=== PATIENT | male | born 1990 | race Caucasian/White ===

== ENCOUNTER 2017-11-14 09:13 | Emergency (ER) | payer OTHER ==
--- NOTE | 2017-11-14 10:04 | EDM.PDOC ---
<Payam Oconnell - Last Filed: 11/14/17 12:01> ED HPI GENERAL MEDICAL PROBLEM - General Chief Complaint: Genitourinary Problem Stated Complaint: GROIN PAIN Time Seen by Provider: 11/14/17 12:03 - History of Present Illness INITIAL COMMENTS - FREE TEXT/NARRATIVE: Patient's emergency department course has been unremarkable UA was negative ultrasound was grossly unremarkable patient be discharged on doxycycline 100 mg twice a day 10 days and be given urology for referral he is to return as needed as discussed and we did specifically talk about acute pain and any changes of that nature returning immediately patient understands and agrees - Related Data Allergies Allergy/AdvReac Type Severity Reaction Status Date / Time No Known Allergies Allergy Verified 11/14/17 09:30 Home Meds: Home Meds . [No Known Home Meds] 11/14/17 [History] ED EXAM, GENERAL - Physical Exam Exam: See Below Course - Vital Signs Last Recorded V/S: Last Vital Signs Temp 97.0 F 11/14/17 09:31 Pulse 82 11/14/17 12:08 Resp 18 11/14/17 12:08 BP 151/85 H 11/14/17 09:31 Pulse Ox 99 11/14/17 12:08 - Orders/Labs/Meds Orders: Active Orders 24 hr Category Date Time Status CHLAMYDIA AND GONORRHEA BY TMA Routine Lab 11/14/17 09:56 Received CULTURE URINE [RM] Stat Lab 11/14/17 11:05 Received Labs: Laboratory Tests 11/14/17 Range/Units 09:56 Urine Color YELLOW Urine Appearance CLEAR Urine pH 6.0 (5.0-8.0) Ur Specific [place] 1.025 (1.001-1.035) Urine Protein NEGATIVE (NEGATIVE) mg/dL Urine Glucose (UA) NEGATIVE (NEGATIVE) mg/dL Urine Ketones NEGATIVE (NEGATIVE) mg/dL Urine Occult Blood NEGATIVE (NEGATIVE) Urine Nitrite NEGATIVE (NEGATIVE) Urine Bilirubin NEGATIVE (NEGATIVE) Urine Urobilinogen 0.2 (<2.0) EU/dL Ur Leukocyte Esterase NEGATIVE (NEGATIVE) Urine RBC NONE SEEN (0-2/HPF) Urine WBC NONE SEEN (0-5/HPF) Ur Epithelial Cells RARE (NONE-FEW) Urine Bacteria RARE (NEGATIVE) Departure - Departure Time of Disposition: 12:02 Disposition: Home, Self-Care 01 Condition: Good Clinical Impression: Testicular pain - Discharge Information *PRESCRIPTION DRUG MONITORING PROGRAM REVIEWED*: Not Applicable *COPY OF PRESCRIPTION DRUG MONITORING REPORT IN PATIENT VIVIENNE: Not Applicable Instructions: Medical Screening Exam, Pain Without a Known Cause Referrals: PCP,None [Primary Care Provider] - Forms: ED Department Discharge Additional Instructions: The following information is given to patients seen in the emergency department who are being discharged to home. This information is to outline your options for follow-up care. We provide all patients seen in our emergency department with a follow-up referral. The need for follow-up, as well as the timing and circumstances, are variable depending upon the specifics of your emergency department visit. If you don't have a primary care physician on staff, we will provide you with a referral. We always advise you to contact your personal physician following an emergency department visit to inform them of the circumstance of the visit and for follow-up with them and/or the need for any referrals to a consulting specialist. The emergency department will also refer you to a specialist when appropriate. This referral assures that you have the opportunity for followup care with a specialist. All of these measure are taken in an effort to provide you with optimal care, which includes your followup. Under all circumstances we always encourage you to contact your private physician who remains a resource for coordinating your care. When calling for followup care, please make the office aware that this follow-up is from your recent emergency room visit. If for any reason you are refused follow-up, please contact the [facility] emergency department at and asked to speak to the emergency department charge nurse. [facility] - Urology [address] [place] [id number] Doxycycline as prescribed follow-up urology above call to schedule appointment return as needed as discussed <Felicita Santos - Last Filed: 11/14/17 14:12> ED HPI GENERAL MEDICAL PROBLEM - History of Present Illness INITIAL COMMENTS - FREE TEXT/NARRATIVE: The patient is a 27-year-old male with no significant past medical history who presents to the ER with intermittent testicular pain for the past 2 weeks. Patient reports that the pain lasts for her 2 hours when it happens. Nothing makes it worse, nothing makes it better. At the worst the pain is a 6 out of 10 , but he is not having any pain currently. He denies any trauma, swelling, or previous history. He denies any penile discharge, burning with urination or genital lesions. Denies abdominal pain, nausea, vomiting. groin Pain Score (Numeric/FACES): 6 Past Medical History - Past Health History Medical/Surgical History: Denies Medical/Surgical History - Infectious Disease History Infectious Disease History: Reports: Chicken Pox Social & Family History - Family History Family Medical History: Noncontributory - Tobacco Use Smoking Status *Q: Never Smoker Second Hand Smoke Exposure: No - Caffeine Use Caffeine Use: Reports: Energy Drinks - Recreational Drug Use Recreational Drug Use: No ED ROS GENERAL - Review of Systems Review Of Systems: See Below (see dictation) ED EXAM, GENERAL - Physical Exam General Appearance: Alert, No Apparent Distress Respiratory/Chest: No Respiratory Distress, Lungs Clear, Normal Breath Sounds Cardiovascular: Regular Rate, Rhythm, No Edema, No Murmur, No Rub GI/Abdominal: Normal Bowel Sounds, Soft, Non-Tender (Male) Exam: No Hernia, Normal Inspection. No: Scrotal Swelling Psychiatric: Normal Affect, Normal Mood Skin Exam: Warm, Dry, Intact Course - Orders/Labs/Meds Labs: Laboratory Tests 11/14/17 Range/Units 09:56 Urine Color YELLOW Urine Appearance CLEAR Urine pH 6.0 (5.0-8.0) Ur Specific [place] 1.025 (1.001-1.035) Urine Protein NEGATIVE (NEGATIVE) mg/dL Urine Glucose (UA) NEGATIVE (NEGATIVE) mg/dL Urine Ketones NEGATIVE (NEGATIVE) mg/dL Urine Occult Blood NEGATIVE (NEGATIVE) Urine Nitrite NEGATIVE (NEGATIVE) Urine Bilirubin NEGATIVE (NEGATIVE) Urine Urobilinogen 0.2 (<2.0) EU/dL Ur Leukocyte Esterase NEGATIVE (NEGATIVE) Urine RBC NONE SEEN (0-2/HPF) Urine WBC NONE SEEN (0-5/HPF) Ur Epithelial Cells RARE (NONE-FEW) Urine Bacteria RARE (NEGATIVE)
--- NOTE | 2017-11-14 11:22 | US ---
EXAMINATION: Scrotal duplex ultrasound HISTORY: Pain COMPARISON: None TECHNIQUE: Grayscale, color Doppler, and spectral Doppler imaging obtained of the scrotum. FINDINGS: Multilevel and right testicles appear normal contour, and echogenicity, and size. No testic ular masses. No significant hydrocele or varicocele. The epididymides appear normal. No scrotal wall thickening. IMPRESSION: 1. Grossly unremarkable scrotal duplex ultrasound.
== END 2017-11-14 12:08 | disposition home or self-care (01) ==
LOC: MW.ED 09:13
DX: N50.819 Testicular pain, unspecified (principal)
CPT/HCPCS: 76870; 76870-26; 81001; 87086; 87491; 87591; 93976; 93976-26; 99282; 99284-25

== ENCOUNTER 2018-05-21 08:09 | Emergency (ER) | payer OTHER ==
--- NOTE | 2018-05-21 08:13 | EDM.PDOC ---
ED HPI GENERAL MEDICAL PROBLEM - General Chief Complaint: General Stated Complaint: FEVER,COUGHING AND COLD Time Seen by Provider: 05/21/18 08:13 Source of Information: Reports: Patient - History of Present Illness INITIAL COMMENTS - FREE TEXT/NARRATIVE: HISTORY AND PHYSICAL: History of present illness: [Patient presents with fever cough and myalgias present for 2 hours she did take Tylenol at home and is in afebrile at current] Review of systems: As per history of present illness and below otherwise all systems reviewed and negative. Past medical history: As per history of present illness and as reviewed below otherwise noncontributory. Surgical history: As per history of present illness and as reviewed below otherwise noncontributory. Social history: No reported history of drug or alcohol abuse. Family history: As per history of present illness and as reviewed below otherwise noncontributory. Physical exam: HEENT: Atraumatic, normocephalic, pupils reactive, negative for conjunctival pallor or scleral icterus, mucous membranes moist, throat clear, neck supple, nontender, trachea midline. tymPanic membranes injected Lungs: Clear to auscultation, breath sounds equal bilaterally, chest nontender. Heart: S1S2, regular, negative for clicks, rubs, or JVD. Abdomen: Soft, nondistended, nontender. Negative for masses or hepatosplenomegaly. Negative for costovertebral tenderness. Pelvis: Stable nontender. Genitourinary: Deferred. Rectal: Deferred. Extremities: Atraumatic, negative for cords or calf pain. Neurovascular unremarkable. Neuro: Awake, alert, oriented. Cranial nerves II through XII unremarkable. Cerebellum unremarkable. Motor and sensory unremarkable throughout. Exam nonfocal. Diagnostics: [Strep influenza Chest 1 view ] Therapeutics: [Azithromycin Tamiflu] Impression: [Viral syndrome Bronchitis] Definitive disposition and diagnosis as appropriate pending reevaluation and review of above. lowr back Pain Score (Numeric/FACES): 7 - Related Data Allergies Allergy/AdvReac Type Severity Reaction Status Date / Time No Known Allergies Allergy Verified 05/21/18 08:15 Home Meds: Home Meds . [No Known Home Meds] 11/14/17 [History] Past Medical History - Past Health History Medical/Surgical History: Denies Medical/Surgical History - Infectious Disease History Infectious Disease History: Reports: Chicken Pox Social & Family History - Family History Family Medical History: Noncontributory - Caffeine Use Caffeine Use: Reports: Energy Drinks ED ROS GENERAL - Review of Systems Review Of Systems: See Below ED EXAM, GENERAL - Physical Exam Exam: See Below Course - Vital Signs Last Recorded V/S: Last Vital Signs Temp 97.7 F 05/21/18 08:16 Pulse 106 H 05/21/18 08:16 Resp 18 05/21/18 08:16 BP 134/73 05/21/18 08:16 Pulse Ox 97 05/21/18 08:16 - Orders/Labs/Meds Orders: Active Orders 24 hr Category Date Time Status CULTURE STREP A CONFIRMATION [RM] Stat Lab 05/21/18 08:19 Results STREP SCRN A RAPID W CULT CONF [RM] Stat Lab 05/21/18 08:19 Results UA RFX SAMIR AND CULT IF INDIC [URIN] Stat Lab 05/21/18 08:44 Stop Req Departure - Departure Time of Disposition: 08:56 Disposition: Home, Self-Care 01 Condition: Good Clinical Impression: Otitis media, Bronchitis - Discharge Information Forms: ED Department Discharge Additional Instructions: The following information is given to patients seen in the emergency department who are being discharged to home. This information is to outline your options for follow-up care. We provide all patients seen in our emergency department with a follow-up referral. The need for follow-up, as well as the timing and circumstances, are variable depending upon the specifics of your emergency department visit. If you don't have a primary care physician on staff, we will provide you with a referral. We always advise you to contact your personal physician following an emergency department visit to inform them of the circumstance of the visit and for follow-up with them and/or the need for any referrals to a consulting specialist. The emergency department will also refer you to a specialist when appropriate. This referral assures that you have the opportunity for follow-up care with a specialist. All of these measure are taken in an effort to provide you with optimal care, which includes your follow-up. Under all circumstances we always encourage you to contact your private physician who remains a resource for coordinating your care. When calling for follow-up care, please make the office aware that this follow-up is from your recent emergency room visit. If for any reason you are refused follow-up, please contact the [facility] emergency department at and asked to speak to the emergency department charge nurse. - My Orders Last 24 Hours: My Active Orders 05/21/18 08:19 CULTURE STREP A CONFIRMATION [RM] Stat STREP SCRN A RAPID W CULT CONF [RM] Stat 05/21/18 08:44 UA RFX SAMIR AND CULT IF INDIC [URIN] Stat - Assessment/Plan Last 24 Hours: My Active Orders 05/21/18 08:19 CULTURE STREP A CONFIRMATION [RM] Stat STREP SCRN A RAPID W CULT CONF [RM] Stat 05/21/18 08:44 UA RFX SAMIR AND CULT IF INDIC [URIN] Stat
--- NOTE | 2018-05-21 08:50 | CR ---
INDICATION: Pain and shortness of breath. TECHNIQUE: AP portable chest x-ray. FINDINGS: Heart size is within normal limits. Pulmonary vascularity in the lungs is mildly increased specially in the upper lungs suggesting slight pulmonary venous congestion. Lowermost chest not included on this film. No focal infiltrate or consolidation in either lung. Chest otherwise unremarkable. Dictated by Russell Beltran MD @ May 21 2018 8:47AM Signed by Dr. Russell Beltran @ May 21 2018 8:47AM
== END 2018-05-21 09:10 | disposition home or self-care (01) ==
LOC: MW.ED 08:09
DX: J40 Bronchitis, not specified as acute or chronic (principal); B34.9 Viral infection, unspecified; H66.90 Otitis media, unspecified, unspecified ear
CPT/HCPCS: 71045; 71045-26; 87081; 87804; 87880-QW; 99282; 99283-25

== ENCOUNTER 2018-08-12 11:52 | Emergency (ER) | payer OTHER ==
--- NOTE | 2018-08-12 12:30 | EDM.PDOC ---
ED HPI GENERAL MEDICAL PROBLEM - General Chief Complaint: Upper Extremity Injury/Pain Stated Complaint: HURT LT WRIST Time Seen by Provider: 08/12/18 11:53 Source of Information: Reports: Patient History Limitations: Reports: No Limitations - History of Present Illness INITIAL COMMENTS - FREE TEXT/NARRATIVE: HISTORY AND PHYSICAL: History of present illness: 28year old male presenting for left wrist injury. Patient reports that he was moving a pipe at work last night and twisted his wrist wrong. He reports that it is an achy pain. Pain does not radiate but it is worse with movement. Denies any prior injuries. He is not taking any medications. Patient denies fever, chills, chest pain, shortness of breath, or cough. Denies headache, neck stiff ness, change in vision, syncope, or near syncope. Denies nausea, vomiting, abdominal pain, diarrhea, constipation, or dysuria. Has not noted any blood in urine or stool. Patient has been eating and drinking appropriately. Review of systems: As per history of present illness and below otherwise all systems reviewed and negative. Past medical history: As per history of present illness and as reviewed below otherwise noncontributory. Surgical history: As per history of present illness and as reviewed below otherwise noncontributory. Social history: See social history for further information Family history: As per history of present illness and as reviewed below otherwise noncontributory. Physical exam: General: Patient is alert, oriented, and in no acute distress. Patient sitting comfortably on exam table. HEENT: Atraumatic, normocephalic, pupils equal and reactive bilaterally, negative for conjunctival pallor or scleral icterus, mucous membranes moist, TMs normal bilaterally, throat clear, neck supple, nontender, trachea midline. No drooling or trismus noted. No meningeal signs. No hot potato voice noted. Lungs: Clear to auscultation, breath sounds equal bilaterally, chest nontender. Heart: S1S2, regular rate and rhythm without overt murmur Abdomen: Soft, nondistended, nontender. Negative for masses or hepatosplenomegaly. Negative for costovertebral tenderness. Pelvis: Stable nontender. Genitourinary: Deferred. Rectal: Deferred. Skin: Intact, warm, dry. No lesions or rashes noted. Extremities: Atraumatic, negative for cords or calf pain. Neurovascular unremarkable. Pain at radial head of left wrist. Pain worse with lateral flexion of the wrist. Radial pulse palpable. Capillary refill <3 sec. Full rang of motion demonstrated in left fingers, wrist, and elbow. Negative snuff box tenderness. Neuro: Awake, alert, oriented. Cranial nerves II through XII unremarkable. Cerebellum unremarkable. Motor and sensory unremarkable throughout. Exam nonfocal. Notes: Discussed the importance of follow up with PCP. Voices understanding and is agreeable to plan of care. Denies any further questions or concerns at this time. Diagnostics: Wrist X-ray Therapeutics: Toradol Splint Prescription: Diclofenac Impression: 1. Wrist strain, left Plan: 1. Take medications as prescribed. May use Tylenol as directed for pain and discomfort. 2. Follow up with your PCP as discussed. Return to ED as discussed. Definitive disposition and diagnosis as appropriate pending reevaluation and review of above. left wrist Pain Score (Numeric/FACES): 6 - Related Data Allergies Allergy/AdvReac Type Severity Reaction Status Date / Time No Known Allergies Allergy Verified 05/21/18 08:15 Home Meds: Home Meds . [No Known Home Meds] 11/14/17 [History] Past Medical History - Past Health History Medical/Surgical History: Denies Medical/Surgical History HEENT History: Reports: None Cardiovascular History: Reports: None Respiratory History: Reports: None Gastrointestinal History: Reports: None Genitourinary History: Reports: None Musculoskeletal History: Reports: None Neurological History: Reports: None Psychiatric History: Reports: None Endocrine/Metabolic History: Reports: None Hematologic History: Reports: None Immunologic History: Reports: None Oncologic (Cancer) History: Reports: None Dermatologic History: Reports: None - Infectious Disease History Infectious Disease History: Reports: Chicken Pox - Past Surgical History Head Surgeries/Procedures: Reports: None HEENT Surgical History: Reports: None Cardiovascular Surgical History: Reports: None Respiratory Surgical History: Reports: None GI Surgical History: Reports: None Male Surgical History: Reports: None Endocrine Surgical History: Reports: None Neurological Surgical History: Reports: None Musculoskeletal Surgical History: Reports: None, Other (See Below) Other Musculoskeletal Surgeries/Procedures:: right ankle surgery Oncologic Surgical History: Reports: None Dermatological Surgical History: Reports: None Social & Family History - Family History Family Medical History: Noncontributory - Tobacco Use Smoking Status *Q: Never Smoker - Caffeine Use Caffeine Use: Reports: None - Recreational Drug Use Recreational Drug Use: No Review of Systems - Review of Systems Review Of Systems: ROS reveals no pertinent complaints other than HPI. ED EXAM, GENERAL - Physical Exam Exam: See Below (See dictation) Course - Vital Signs Last Recorded V/S: Last Vital Signs Temp 36.9 C 08/12/18 12:26 Pulse 87 08/12/18 12:26 Resp 16 08/12/18 12:26 BP 131/79 08/12/18 12:26 Pulse Ox 97 08/12/18 12:26 - Orders/Labs/Meds Orders: Active Orders 24 hr Category Date Time Status DME for Discharge [COMM] Stat Oth 08/12/18 12:31 Ordered Departure - Departure Time of Disposition: 12:51 Disposition: Home, Self-Care 01 Clinical Impression: Wrist strain Qualifiers: Encounter type: initial encounter Laterality: left Qualified Code(s): S66.912A - Strain of unspecified muscle, fascia and tendon at wrist and hand level, left hand, initial encounter - Discharge Information Referrals: PCP,None [Primary Care Provider] - Forms: ED Department Discharge Additional Instructions: The following information is given to patients seen in the emergency department who are being discharged to home. This information is to outline your options for follow-up care. We provide all patients seen in our emergency department with a follow-up referral. The need for follow-up, as well as the timing and circumstances, are variable depending upon the specifics of your emergency department visit. If you don't have a primary care physician on staff, we will provide you with a referral. We always advise you to contact your personal physician following an emergency department visit to inform them of the circumstance of the visit and for follow-up with them and/or the need for any referrals to a consulting specialist. The emergency department will also refer you to a specialist when appropriate. This referral assures that you have the opportunity for follow-up care with a specialist. All of these measure are taken in an effort to provide you with optimal care, which includes your follow-up. Under all circumstances we always encourage you to contact your private physician who remains a resource for coordinating your care. When calling for follow-up care, please make the office aware that this follow-up is from your recent emergency room visit. If for any reason you are refused follow-up, please contact the [facility] Emergency Department at and asked to speak to the emergency department charge nurse. [facility] [address] [place] [address] [address] 1. Take medications as prescribed. May use Tylenol as directed for pain and discomfort. 2. Follow up with your PCP as discussed. Return to ED as discussed. - My Orders Last 24 Hours: My Active Orders 08/12/18 12:31 DME for Discharge [COMM] Stat - Assessment/Plan Last 24 Hours: My Active Orders 08/12/18 12:31 DME for Discharge [COMM] Stat
--- NOTE | 2018-08-12 12:50 | CR ---
INDICATION: Pain. Left wrist injury. FINDINGS: Three views of the left wrist were obtained. There is no acute fracture seen or dislocation. There is an old fracture deformity in the shaft of the 3rd metacarpal bone. IMPRESSION: No acute bone abnormality. Dictated by Bill Key MD @ Aug 12 2018 12:48PM Signed by Dr. Bill Key @ Aug 12 2018 12:48PM
== END 2018-08-12 13:17 | disposition home or self-care (01) ==
LOC: MW.ED 11:52
DX: S66.912A Strain of unspecified muscle, fascia and tendon at wrist and hand level, left hand, initial encounter (principal); X50.1XXA Overexertion from prolonged static or awkward postures, initial encounter
CPT/HCPCS: 73110-26-LT; 73110-LT; 99282; 99283-25

== ENCOUNTER 2019-02-20 10:47 | Emergency (ER) | payer OTHER ==
--- NOTE | 2019-02-20 11:53 | EDM.PDOC ---
ED [facility] GENERAL MEDICAL PROBLEM - General Chief Complaint: ENT Problem Stated Complaint: SORE THROAT Time Seen by Provider: 02/20/19 10:52 - History of Present Illness INITIAL COMMENTS - FREE TEXT/NARRATIVE: HPI 29-year-old obese male presents for evaluation of mild bilateral ear discomfort and a sore throat since this morning. Patient has taken no analgesics or other medications prior to presentation. Patient is concerned that he has bronchitis or strep throat. Denies rash, neck stiffness, headache, changes in vision or hearing, or ear pain. Triage note: pt to ed with c/o sore throat and bilateral ear pain for one day. M/S/F/SocHx notable for: please see HPI; remainder reviewed with patient and in chart. ROS: Negative constitutional, eye, cardiovascular, pulmonary, GI, , MSK, skin , neurologic, psychiatric, endocrine unless noted in the HPI. Exam HR 101, RR 18, BP 139/77, T 36.6C, SaO2 95% on room air. Gen: Pleasant, non-toxic appearing, resting comfortably. HEENT: Normocephalic, atraumatic. * Ears - TMs scant serous effusions bilaterally, bilateral external auditory canals without erythema, inflammation, or swelling, bilateral mastoids nontender without overlying erythema, swelling, or warmth. * Eyes - Bilateral eyes without injection, swelling, or discharge, no proptosis or periorbital erythema, swelling, warmth, or tenderness. * Mouth - Anterior oropharynx with MMM, no lesions appreciated, floor of the mouth is soft and without swelling. Posterior oropharynx with mild erythema but without swelling, exudate, lesions, uvula midline. * Nose - Nares without crusting or discharge. * Neck - Neck supple without posterior or anterior cervical chain lymphadenopathy bilaterally. Resp: Clear to auscultation bilaterally, normal work of breathing without accessory muscle usage. Card: Regular rate and rhythm with no murmurs, rubs or gallops. Extremities warm and well perfused. GI: Non-tender to palpation throughout all quadrants, no masses or organomegaly appreciated. : Deferred MSK: No visible deformities, strength and tone without visually appreciable deficit. Neuro: alert and oriented 3, no facial asymmetry, vision and hearing WNL. Heme/Lymph: Deferred Skin: Normal color with no visible lesions (other than noted above). Psych: Mood and affect appropriate. Labs: positive rapid strep. MDM Previous chart, nursing note, and vitals reviewed. A: 29-year-old obese male presents for evaluation of mild bilateral ear discomfort and a sore throat since this morning. DDx: viral rhinosinusitis, bacterial rhinosinusitis, pharyngitis (HSV vs viral NOS vs GAS vs bacterial NOS)], EBV, peritonsillar cellulitis, RESIDENTIAL CARE OFFICER, RPA, Jose' s angina, epiglottitis. Evaluation: Overall presentation most consistent with a rhinosinutisis, given the duration of symptoms and overall well compensated appearance, antibiotic treatment is not currently indicated, rapid strep positive (obtained by protocol ), oral mucosa without lesions consistent with HSV or candidiasis, low suspicion for peritonsillar cellulitis or abscess given the absence of asymmetric swelling or uvular deviation, RPA is unlikely as the patient can comfortably flex and extend their neck and swallow without difficulty. As phonation is intact and breathing is unlabored doubt epiglottitis. The floor of the mouth is without evidence of Jose's angina. Lemierre's disease was considered but as the patient does not have signs of RESIDENTIAL CARE OFFICER or sepsis, further evaluation was not indicated. ED Course: No clinically significant changes. Disposition: Discharge with return to care as needed. Return to care indications provided. Amoxicillin 500 mg b.i.d. 10 days prescribed Impression: rhinosinusitis, positive strep a screen. throat/ears Pain Score (Numeric/FACES): 7 - Related Data Allergies Allergy/AdvReac Type Severity Reaction Status Date / Time No Known Allergies Allergy Verified 02/20/19 11:05 Home Meds: Home Meds Amoxicillin 500 mg PO BID #20 capsule 02/20/19 [Rx] Past Medical History - Past Health History Medical/Surgical History: Denies Medical/Surgical History HEENT History: Reports: None Cardiovascular History: Reports: None Respiratory History: Reports: None Gastrointestinal History: Reports: None Genitourinary History: Reports: None Musculoskeletal History: Reports: None Neurological History: Reports: None Psychiatric History: Reports: None Endocrine/Metabolic History: Reports: None Hematologic History: Reports: None Immunologic History: Reports: None Oncologic (Cancer) History: Reports: None Dermatologic History: Reports: None - Infectious Disease History Infectious Disease History: Reports: Chicken Pox Other Infectious Disease History: childhood - Past Surgical History Head Surgeries/Procedures: Reports: None HEENT Surgical History: Reports: None Cardiovascular Surgical History: Reports: None Respiratory Surgical History: Reports: None GI Surgical History: Reports: None Male Surgical History: Reports: None Endocrine Surgical History: Reports: None Neurological Surgical History: Reports: None Musculoskeletal Surgical History: Reports: None, Other (See Below) Other Musculoskeletal Surgeries/Procedures:: right ankle surgery Oncologic Surgical History: Reports: None Dermatological Surgical History: Reports: None Social & Family History - Family History Family Medical History: Noncontributory - Tobacco Use Smoking Status *Q: Never Smoker Second Hand Smoke Exposure: No - Caffeine Use Caffeine Use: Reports: None - Recreational Drug Use Recreational Drug Use: No ED ROS GENERAL - Review of Systems Review Of Systems: See Below ED EXAM, GENERAL - Physical Exam Exam: See Below Course - Vital Signs Last Recorded V/S: Last Vital Signs Temp 36.6 C 02/20/19 11:05 Pulse 101 H 02/20/19 11:05 Resp 18 02/20/19 11:05 BP 139/77 02/20/19 11:05 Pulse Ox 95 02/20/19 11:05 - Orders/Labs/Meds Orders: Active Orders 24 hr Category Date Time Status INFLUENZA A+B AG SCREEN [RM] Stat Lab 02/20/19 11:41 Received Departure - Departure Time of Disposition: 11:51 Disposition: Home, Self-Care 01 Clinical Impression: Strep pharyngitis - Discharge Information Prescriptions: Amoxicillin 500 mg PO BID #20 capsule Referrals: PCP,Not In Area [Primary Care Provider] - Additional Instructions: You were in seen in the [facility] Emergency Department for evaluation of an upper respiratory tract infection. You were also found have group a strep on your strep swab and have been prescribed amoxicillin. Please read and follow all of the instructions below. Please follow up with your primary care physician as needed. When calling for follow-up care, please make the office aware that this follow-up is from your recent emergency room visit. If for any reason you are refused follow-up, please contact the [facility] Emergency Department at and asked to speak to the emergency department charge nurse. Your care today was limited to identifying and treating emergent medical problems only. Many people have subtle differences in their test results that require follow up with their outpatient physician(s) to correctly determine if this represents a normal variation or concerning abnormality with respect to your specific health. The care given to you today was limited to identifying and treating emergent medical problems - you need to request a copy of all of your medical records from today's visit and follow up with your outpatient physician(s) to review both today's visit and your overall health. If you have any new symptoms or if you are at all concerned about your health please return immediately to the emergency department. Amoxicillin (Brand Names: Amoxil) Please take this medication as prescribed. Please take the medication for the full duration of the prescription. If you feel you are experiencing a side effect, please call your physician or the emergency department. This is a penicillin type medicine used to treat a wide variety of bacterial infections. Amoxicillin Side Effects: Nausea, vomiting, or diarrhea may occur. If any of these effects persist or worsen, tell your doctor or pharmacist promptly. This medicine may cause temporary staining of the teeth. Proper brushing will usually remove any stains and prevent them from occurring. Use of this medication for prolonged or repeated periods may result in oral thrush or a new vaginal yeast infection (oral or vaginal fungal infection). Contact your doctor if you notice white patches in your mouth, a change in vaginal discharge or other new symptoms. Tell your doctor right away if any of these rare but serious side effects occur: dark urine, persistent nausea or vomiting, stomach/abdominal pain, yellowing eyes or skin, easy bruising or bleeding, persistent sore throat or fever. This medication may rarely cause a severe intestinal condition (Clostridium difficile-associated diarrhea) due to a type of resistant bacteria. This condition may occur during treatment or weeks to months after treatment has stopped. Do not use anti-diarrhea products or narcotic pain medications if you have the following symptoms because these products may make them worse. Tell your doctor right away if you develop: persistent diarrhea, abdominal or stomach pain/cramping, blood/mucus in your stool. A very serious allergic reaction to this drug is rare. However, get medical help right away if you notice any symptoms of a serious allergic reaction, including: rash, itching/swelling (especially of the face/tongue/throat), severe dizziness, trouble breathing. Amoxicillin can commonly cause a mild rash that is usually not serious. However, you may not be able to tell it apart from a rare rash that could be a sign of a severe allergic reaction. Therefore, get medical help right away if you develop any rash. Amoxicillin Precautions: Before taking amoxicillin, tell your doctor or pharmacist if you are allergic to it; or to penicillin or cephalosporin antibiotics; or if you have any other allergies. This product may contain inactive ingredients, which can cause allergic reactions or other problems. Talk to your pharmacist for more details. Before using this medication, tell your doctor or pharmacist your medical history, especially of: kidney disease, a certain type of viral infection ( infectious mononucleosis). Amoxicillin suspension may contain sugar. Caution is advised if you have diabetes or any other condition that requires you to limit/avoid sugar in your diet. Ask your doctor or pharmacist about using this product safely. Before having surgery, tell your doctor or dentist about all the products you use (including prescription drugs, nonprescription drugs, and herbal products). Amoxicillin Drug Interactions: The effects of some drugs can change if you take other drugs or herbal products at the same time. This can increase your risk for serious side effects or may cause your medications not to work correctly. These drug interactions are possible, but do not always occur. Your doctor or pharmacist can often prevent or manage interactions by changing how you use your medications or by close monitoring. To help your doctor and pharmacist give you the best care, be sure to tell your doctor and pharmacist about all the products you use (including prescription drugs, nonprescription drugs, and herbal products) before starting treatment with this product. While using this product, do not start, stop, or change the dosage of any other medicines you are using without your doctor's approval. Some products that may interact with this drug include: live bacterial vaccines, methotrexate. This document does not contain all possible drug interactions. Keep a list of all the products you use. Share this list with your doctor and pharmacist to lessen your risk for serious medication problems. Prescriptions: If you are uninsured or have financial difficulties with filling your prescription(s), you may consider using a free pharmacy discount service such as [employer] ([employer]) or [employer] ([employer]). These services allow you to search for a medication on your phone (or computer) and obtain a coupon that usually has a significant discount from the list coreas at a pharmacy. Your physician as well as [facility] does not have a financial relationship with either of these services. You may also wish to speak with your physician to determine if lower cost prescriptions are possible. Obtaining primary care: 1. [facility] provides pediatrics (children), family medicine (children, adults, and some obstetrical care), and internal medicine (adults). Further specialty care is also available. Same day appointments are available. They may be contacted at [phone] and are open Tuesday through Tuesday 8 AM to 5 PM. [facility] are located at [facility], [address], [place] [address]. 2. [facility] offers family medicine, internal medicine, women health, and further specialty care. [facility] may be contacted at [phone]. [facility] is located at [address] [facility] [address]. 3. If you have health insurance, please also contact your insurer for a list of accepting providers under your policy, you may contact these providers for further health care. Occupational health: Work related injuries may consider following up with [facility], . Occupational health services are located at [address] [place] [address] and are open Tuesday through Tuesday from 7: 30 am to 5:00 pm. Obstetrical and Gynecological Care: [facility], , Tuesday through Tuesday 8 AM to [address] [place] [address]. Eyecare: If you have an eye injury you should follow up with your jewelry facer or with [facility], at [phone] or [phone] , they are located at [address] [place] [address]. Dental Care Manuel Cardoso DDS. [address] [place], [place]. Ph. [phone] Vladimir Cardoso DDS MS. [address] Ph. [phone] Mickey Bahena DDS. 10 02/[address] [place] [address]. Ph. [phone] Daryn Minor DDS. [address] [facility] [address] [place], [place]. Ph. [phone] Hugo Gonzalez DDS PC. [address] [facility] [address] [place], [place]. Ph. Cristopher Griggs DDS. [address] [facility]. Ph. [phone] [facility]. [address] [place], [place]. Ph. [phone] [facility]. [address] [place] [address], [place], [place]. Ph. [phone] [facility] [address] [place] [phone]. Ph. [facility]. [address] [place] [address] [address] [place]. Ph. [facility]. [address] [place], [place]. Ph. [phone] Cough Home Care Instructions You were seen in the emergency department today for evaluation of your cough. Based upon the evaluation today your cough does not appear to be caused by bacterial pneumonia, rather a virus is the cause of your cough. These types of infections cannot be treated by antibiotics, your body will fight this infection and clear the virus. Most people get better in 7-10 days. It is not uncommon to have a mild nonproductive cough last for up to several weeks following the resolution of your illness. If you continue have a cough beyond 7- 10 days please follow-up with your primary care physician. You may do the following treatments to reduce your symptoms: * Mplq-jrm-xbkwdrp cough medications containing dextromethorphan may reduce the frequency and severity of your coughing. Please take as directed on the bottle. Please read all warnings on the bottle. Do not take this medication if you have any allergies to any of the ingredients listed on the bottle. * Ibuprofen may be used to reduce fever, pain, and inflammation. You may take 600 mg (three 200 mg [id number] tablets) every 6-8 hours. Please read the warnings below regarding ibuprofen. Do not take this medication if you are or allergic to ibuprofen, Motrin, Aleve, or naproxen. * Please stay well-hydrated and get adequate rest. * If you are a smoker please stop smoking. * Ufvy-eed-xvbrvty lozenges or tea with honey may be used for sore throat. Please return to the emergency department if any of the following occur: * Increasing fever. * Worsening cough or a cough that becomes productive of thick sputum. * A cough that temporarily gets better and then over the several days get significantly worse. This may occur if you developed a bacterial pneumonia following your viral infection. This rarely occurs and there is no prevention at this point in your infection. * Chest pain. * Shortness of breath or difficulty breathing. * If you are otherwise concerned about your health. Sepsis Event Note - Evaluation Sepsis Screening Result: No Definite Risk - Focused Exam Vital Signs: Vital Signs Temp Pulse Resp BP Pulse Ox 02/20/19 11:05 36.6 C 101 H 18 139/77 95 Date Exam was Performed: 02/20/19 Time Exam was Performed: 11:51 - My Orders Last 24 Hours: My Active Orders 02/20/19 11:41 INFLUENZA A+B AG SCREEN [RM] Stat - Assessment/Plan Last 24 Hours: My Active Orders 02/20/19 11:41 INFLUENZA A+B AG SCREEN [RM] Stat
== END 2019-02-20 12:10 | disposition home or self-care (01) ==
LOC: MW.ED 10:47
DX: J02.0 Streptococcal pharyngitis (principal)
CPT/HCPCS: 87804; 87880-QW; 99283